=== PATIENT | female | born 1965 | race Caucasian/White ===

== ENCOUNTER → 2016-10-03 | Outpatient (CLI) | payer OTHER ==
[~2016-10-03] MED LIST: ALBUTEROL0.09 MG/A4 IH; ALEVE 220MG220 MG PO; ASPIRIN E.C. 8181 MG PO; ATENOLOL; ATENOLOL25 MG PO; CEFTIN250 M1 PO; CEPHALEXIN250 M1 PO; CIPRO250 MG PO; CLEOCIN HC150 MG/CAP PO; FLEXERIL 1010 MG/TAB PO; FUROSEMIDE; GLUCOSAMINE500 MG PO; IMIPRAMINE; K-DUR20 MEQ PO; KLOR-CON 1010 MEQ PO; LASIX 20MG TABL20 MG PO; LASIX20 MG PO; LEVAQUIN 250MG250 MG PO; LEVAQUIN 750MG750 MG PO; LORTAB 5/500 501 TAB PO; NITROQUICK0.4 MG SL; NO HOME MEDICATIONS; NORCO 325 MG-51 TAB PO; NORCO 325 MG-7.1 TAB PO; NORVASC2.5 MG PO; NYSTATIN 100MU/ML PO; PEPCID 20MG TAB20 MG PO; PERCOCET 325 MG1 TA2 PO; PERCOCET 500 MG1 TAB PO; PHENERGAN 25 TA25 MG PO; PREDNISONE; PREDNISONE10 MG; PREDNISONE20 MG PO; PYRIDIUM200 M1 PO; SINVASTATIN; TENORETIC 50 501 TAB PO; TENORMIN 2525 MG/TAB PO; TENORMIN25 MG PO; TORADOL10 MG PO; TUSS PO; VALIUM 5MG T5 MG/TAB PO; ZITHROMAX Z PA250 MG PO; ZOCOR 10MG10 MG PO; ZOFRAN 4MG T4 MG/TAB PO
== END ==
LOC: MC.RAD 13:46
DX: Z12.31 Encounter for screening mammogram for malignant neoplasm of breast (principal)

== ENCOUNTER 2017-09-17 11:49 | Emergency (ER) | payer OTHER ==
[~2017-09-17] VITALS: Ht 157.5 cm; Wt 95.5 kg
[2017-09-17 11:57] VITALS: BP 184/91; TEMP 98.1
[2017-09-17 13:18] LABS: BASO # 0.1 (0.0-0.2); BASO % 1.2 % (0.0-2.0); EOS # 0.2 (0.0-0.7); EOS % 2.8 % (0-4.0); GRAN # 4.2 (1.4-6.5); GRAN % 48.5 % (42.2-75.2); HEMOGLOBIN 14.5 g/dl (12.5-16.0); LYMPH # 3.5 (1.2-3.4); LYMPH % 41.3 % (20.0-51.0); MEAN CELL VOLUME 96 fl (80.0-100.0); MEAN CORPUSCULAR HEMOGLOBIN 32 pg (27.0-31.0); MEAN CORPUSCULAR HGB CONC 33 g/dl (33.0-37.0); MEAN PLATELET VOLUME 11.3 fl (7.4-10.4); MONO # 0.5 (0.1-0.6); MONO % 5.8 % (1.7-9.3); PLATELET COUNT 192 K/mm3 (130-400); RED BLOOD COUNT 4.58 M/mm3 (4.10-5.30); REDCELL DISTRIBUTION WIDTH-CV 13.2 % (11.5-14.5)
[2017-09-17 14:00] LABS: INFLUENZA A NEGATIVE; INFLUENZA B NEGATIVE
[2017-09-17 14:12] LABS: INR 1.1 (0.8-3.0); PROTHROMBIN TIME 12.5 SECONDS (9.7-12.8)
[2017-09-17 14:19] LABS: ALANINE AMINOTRANSFERASE 35 U/L (9-52); ALBUMIN 4.4 gm/dL (3.5-5.0); ALKALINE PHOSPHATASE 95 U/L (50-136); ANION GAP 7 mmol/L (7-16); AST,SGOT 24 U/L (15-37); BILIRUBIN,TOTAL 0.3 mg/dL (0.0-1.0); BLOOD UREA NITROGEN 13 mg/dL (7-17); CALCIUM 9.8 mg/dL (8.4-10.2); CARBON DIOXIDE 27 mmol/L (22-30); CHLORIDE 106 mmol/L (98-107); CREATININE, serum 0.72 mg/dL (0.52-1.25); GLUCOSE 90 mg/dL (74-106); POTASSIUM 3.8 mmol/L (3.4-5.0); SODIUM 140 mmol/L (137-145); TOTAL PROTEIN 7.2 gm/dL (6.4-8.2)
[2017-09-17 14:27] LABS: C-REACTIVE PROTEIN < 0.5 mg/dL (0.0-0.9)
[2017-09-17 14:30] LABS: TROPONIN-I < 0.012 ng/mL (0.000-0.034)
[2017-09-17] MEDS ORDERED: FLEXERIL 1010 MG/TAB PO (14:59)
[2017-09-17 15:06] VITALS: PULSE 88
== END 2017-09-17 15:08 | disposition home or self-care (01) ==
LOC: COL.ER 11:49
PROVIDERS: Family Medicine
DX: G44.89 Other headache syndrome (principal); M54.2 Cervicalgia; I10 Essential (primary) hypertension; F17.210 Nicotine dependence, cigarettes, uncomplicated; Z79.82 Long term (current) use of aspirin
CPT/HCPCS: J1885

== ENCOUNTER 2018-10-09 10:47 | Emergency (ER) | payer OTHER ==
[~2018-10-09] VITALS: Ht 160 cm; Wt 101.2 kg
[~2018-10-09 10:47] MED LIST changes: +NORVASC 5MG5 MG/TAB PO
[2018-10-09 11:03] VITALS: BP 147/74; TEMP 98.2
[2018-10-09 11:12] LABS: COLLECTION METHOD CLEAN CATCH
[2018-10-09] MEDS ORDERED: NORVASC 10MG10 MG PO (11:16)
[2018-10-09 11:26] LABS: MUCOUS Present /lpf; PH 5 (5-8); SQUAMOUS EPITHELIAL 0-2 /hpf; URINE APPEARANCE Clear; URINE BACTERIA None Seen /hpf; URINE BILIRUBIN Negative (NEGATIVE); URINE BLOOD 2+ (NEGATIVE); URINE COLOR Yellow; URINE GLUCOSE Negative (NEGATIVE); URINE KETONE Negative (NEGATIVE); URINE LEUKOCYTE ESTERASE Negative (NEGATIVE); URINE NITRATE Negative (NEGATIVE); URINE PROTEIN(semi-quant) Negative (NEGATIVE); URINE UROBILINOGEN Negative (NEGATIVE)
[2018-10-09 11:57] LABS: BASO # 0.1 (0.0-0.2); BASO % 0.6 % (0.0-2.0); EOS # 0.2 (0.0-0.7); EOS % 2.7 % (0-4.0); GRAN # 4.6 (1.4-6.5); GRAN % 54.2 % (42.2-75.2); HEMATOCRIT 41.4 % (37.0-47.0); LYMPH % 35.3 % (20.0-51.0); MEAN CELL VOLUME 94 fl (80.0-100.0); MEAN CORPUSCULAR HEMOGLOBIN 32 pg (27.0-31.0); MEAN CORPUSCULAR HGB CONC 34 g/dl (33.0-37.0); MEAN PLATELET VOLUME 10.8 fl (7.4-10.4); MONO # 0.6 (0.1-0.6); MONO % 6.8 % (1.7-9.3); PLATELET COUNT 234 K/mm3 (130-400); RED BLOOD COUNT 4.43 M/mm3 (4.10-5.30); REDCELL DISTRIBUTION WIDTH-CV 13.3 % (11.5-14.5)
[2018-10-09 12:05] LABS: BILIRUBIN,TOTAL 0.3 mg/dL (0.0-1.0); CALCIUM 9.3 mg/dL (8.4-10.2); CREATININE, serum 0.58 mg/dL (0.52-1.25)
[2018-10-09] MEDS ORDERED: NORCO 325 MG-51 TAB PO (13:04)
[2018-10-09 13:15] VITALS: PULSE 63
== END 2018-10-09 13:16 | disposition home or self-care (01) ==
LOC: COL.ER 10:47
PROVIDERS: Family Medicine
DX: N12 Tubulo-interstitial nephritis, not specified as acute or chronic (principal); Z87.442 Personal history of urinary calculi
CPT/HCPCS: J1170; J1885; J2405; J7030

== ENCOUNTER → 2019-05-05 | Outpatient (CLI) | payer OTHER ==
[~2019-05-05] MED LIST changes: +NORVASC 10MG10 MG PO
== END ==
LOC: COL.RAD 09:16
DX: M47.817 Spondylosis without myelopathy or radiculopathy, lumbosacral region (principal); M54.31 Sciatica, right side; M48.07 Spinal stenosis, lumbosacral region

== ENCOUNTER 2019-10-10 09:48 | Day surgery (SDC) | payer OTHER ==
[~2019-10-10] VITALS: Ht 160 cm; Wt 98.6 kg
[~2019-10-10 09:48] MED LIST changes: -NORVASC 10MG10 MG PO
[2019-10-10] MEDS ORDERED: MAXALT10 MG PO (10:23)
[2019-10-10] MEDS ORDERED: FLEXERIL 1010 MG/TAB PO (10:23)
[2019-10-10] MEDS ORDERED: TYLENOL 500MG500 MG PO (10:24)
[2019-10-10] MEDS ORDERED: MOTRIN 200200 MG/TAB PO (10:25)
[2019-10-10 11:12] VITALS: BP 138/88; PULSE 82; TEMP 98.6
[2019-10-10 11:55] VITALS: BP 134/78; PULSE 75; TEMP 97.7
--- NOTE | 2019-10-10 11:55 | NUR ---
Patient arrives back to [facility] [place], complains of abdominal cramping/gas pain. Patient ambulates from cart to chair with standby assist and without any complications. Patient monitor applied, vitals stable. Patient's son brought to bedside. Patient given soda.
--- NOTE | 2019-10-10 12:00 | NUR ---
Warm blanket applied to patient's abdomen. Patient educated on gas pain and how heat or ambulation will help.
[2019-10-10 12:10] VITALS: BP 135/87; PULSE 77
--- NOTE | 2019-10-10 12:20 | NUR ---
Patient reports that he abdominal cramping/gas pain is getting better. Vitals stable. Patient does report slight nausea, prn Zofran given. Dr Dawkins into see patient at this time to go over procedure results.
[2019-10-10 12:25] VITALS: BP 134/73; PULSE 70
[2019-10-10 12:40] VITALS: BP 124/80; PULSE 66
--- NOTE | 2019-10-10 12:40 | NUR ---
Patient reports that she feels much better at this time and is ready to go home.
--- NOTE | 2019-10-10 12:45 | NUR ---
Dismissal instructions gone over with patient and patient's son. Both verbalize understanding and all questions answered.
[2019-10-10 12:50] VITALS: BP 134/78; PULSE 74
--- NOTE | 2019-10-10 12:50 | NUR ---
Patient discharged to patient enterance to private vehicle that he son is driving without any complications. Patient leaves thanking staff for services.
== END 2019-10-10 12:50 | disposition home or self-care (01) ==
LOC: SDCO 09:48
DX: Z12.11 Encounter for screening for malignant neoplasm of colon (principal); D12.2 Benign neoplasm of ascending colon; K63.3 Ulcer of intestine; K57.30 Diverticulosis of large intestine without perforation or abscess without bleeding; K64.8 Other hemorrhoids; I10 Essential (primary) hypertension; E78.00 Pure hypercholesterolemia, unspecified; J45.909 Unspecified asthma, uncomplicated; K58.0 Irritable bowel syndrome with diarrhea; F17.210 Nicotine dependence, cigarettes, uncomplicated; G89.29 Other chronic pain; M54.5 Low back pain; G47.33 Obstructive sleep apnea (adult) (pediatric); Z90.710 Acquired absence of both cervix and uterus; Z86.010 Personal history of colon polyps; Z80.0 Family history of malignant neoplasm of digestive organs; Z88.5 Allergy status to narcotic agent; Z88.0 Allergy status to penicillin; Z91.040 Latex allergy status; Z85.41 Personal history of malignant neoplasm of cervix uteri; Z88.1 Allergy status to other antibiotic agents
CPT/HCPCS: J2405; J2704; J3010; J7030

== ENCOUNTER → 2019-11-07 | Outpatient (CLI) | payer OTHER ==
[~2019-11-07] MED LIST changes: +MAXALT10 MG PO; +MOTRIN 200200 MG/TAB PO; +TYLENOL 500MG500 MG PO
== END ==
LOC: MC.RAD 10:51
DX: Z12.31 Encounter for screening mammogram for malignant neoplasm of breast (principal)

== ENCOUNTER 2020-01-12 10:34 | Emergency (ER) | payer SELFPAY ==
[~2020-01-12] VITALS: Ht 160 cm; Wt 95.9 kg
[2020-01-12 10:36] VITALS: TEMP 97.6
[2020-01-12] MEDS ORDERED: NORCO 325 MG-51 TAB PO (10:41)
[2020-01-12] MEDS ORDERED: ZOFRAN ODT4 MG PO (12:38)
[2020-01-12] MEDS ORDERED: PERCOCET 325 MG1 TA2 PO (12:38)
[2020-01-12 13:09] VITALS: BP 123/67; PULSE 64
== END 2020-01-12 13:09 | disposition home or self-care (01) ==
LOC: COL.ER 10:34
DX: S32.040A Wedge compression fracture of fourth lumbar vertebra, initial encounter for closed fracture (principal); S32.050A Wedge compression fracture of fifth lumbar vertebra, initial encounter for closed fracture; I10 Essential (primary) hypertension; G43.909 Migraine, unspecified, not intractable, without status migrainosus; F17.210 Nicotine dependence, cigarettes, uncomplicated; Z88.0 Allergy status to penicillin; Z88.5 Allergy status to narcotic agent; Z90.710 Acquired absence of both cervix and uterus; W01.0XXA Fall on same level from slipping, tripping and stumbling without subsequent striking against object, initial encounter; Y92.009 Unspecified place in unspecified non-institutional (private) residence as the place of occurrence of the external cause
CPT/HCPCS: J2405; J3010

== ENCOUNTER 2020-09-16 18:27 | Emergency (ER) | payer OTHER ==
[~2020-09-16] VITALS: Ht 157.5 cm; Wt 94.5 kg
[~2020-09-16 18:27] MED LIST changes: +ZOFRAN ODT4 MG PO
[2020-09-16 18:46] VITALS: BP 161/88; PULSE 85; TEMP 98.1
== END 2020-09-16 20:22 | disposition left against medical advice (07) ==
LOC: COL.ER 18:27
DX: S61.011A Laceration without foreign body of right thumb without damage to nail, initial encounter (principal); W26.9XXA Contact with unspecified sharp object(s), initial encounter

== ENCOUNTER 2023-08-28 10:37 | Emergency (ER) | payer OTHER ==
[~2023-08-28] VITALS: Ht 157.5 cm; Wt 95.5 kg
[~2023-08-28 10:37] MED LIST changes: +COZAAR 50MG50 MG/TAB PO
[2023-08-28 10:42] VITALS: TEMP 98.1
[2023-08-28 10:58] LABS: BASO # 0.1 K/mm3 (0.0-0.2); BASO % 1.2 % (0.0-2.0); EOS # 0.3 K/mm3 (0.0-0.7); EOS % 3.7 % (0.0-4.0); GRAN # 3.5 K/mm3 (1.4-6.5); GRAN % 45.1 % (42.2-75.2); HEMATOCRIT 41.5 % (37.0-47.0); LYMPH # 3.3 K/mm3 (1.2-3.4); LYMPH % 42.1 % (20.0-51.0); MEAN CELL VOLUME 94 fl (80.0-100.0); MEAN CORPUSCULAR HEMOGLOBIN 32 pg (27-31); MEAN CORPUSCULAR HGB CONC 34 g/dl (33.0-37.0); MEAN PLATELET VOLUME 10.6 fl (7.4-10.4); MONO # 0.6 K/mm3 (0.1-0.6); MONO % 7.4 % (1.7-9.3); PLATELET COUNT 222 K/mm3 (130-400); REDCELL DISTRIBUTION WIDTH-CV 13.1 % (11.5-14.5)
[2023-08-28 11:12] LABS: ALANINE AMINOTRANSFERASE 20 U/L (0-55); ALBUMIN 3.9 gm/dL (3.5-5.0); ALKALINE PHOSPHATASE 103 U/L (40-150); ANION GAP 10 mmol/L (7-16); AST,SGOT 20 U/L (5-34); BILIRUBIN,TOTAL 0.3 mg/dL (0.2-1.2); BLOOD UREA NITROGEN 14 mg/dL (10-20); CALCIUM 9.7 mg/dL (8.4-10.2); CARBON DIOXIDE 22 mmol/L (22-29); CHLORIDE 109 mmol/L (98-107); CREATININE, serum 0.74 mg/dL (0.57-1.11); GLUCOSE 85 mg/dL (70-99); POTASSIUM 3.9 mmol/L (3.5-4.5); SODIUM 141 mmol/L (136-145); TOTAL PROTEIN 6.8 gm/dL (6.2-8.1)
[2023-08-28 11:18] LABS: TROPONIN-I < 0.010 ng/mL (0.00-0.033)
[2023-08-28 11:45] VITALS: BP 123/73; PULSE 70
== END 2023-08-28 12:20 | disposition home or self-care (01) ==
LOC: COL.ER 10:37
PROVIDERS: Physician Assistant
DX: R07.89 Other chest pain (principal); R06.02 Shortness of breath; F17.210 Nicotine dependence, cigarettes, uncomplicated; Z91.040 Latex allergy status

== ENCOUNTER 2023-10-16 11:32 | Emergency (ER) | payer OTHER ==
[~2023-10-16] VITALS: Ht 160 cm; Wt 100.0 kg
[2023-10-16 11:37] VITALS: TEMP 98
[2023-10-16 12:11] LABS: HEMATOCRIT 39.6 % (37.0-47.0); HEMOGLOBIN 13.3 g/dl (12.5-16.0); MEAN CELL VOLUME 95 fl (80.0-100.0); MEAN CORPUSCULAR HEMOGLOBIN 32 pg (27-31); MEAN CORPUSCULAR HGB CONC 34 g/dl (33.0-37.0); MEAN PLATELET VOLUME 10.5 fl (7.4-10.4); PLATELET COUNT 235 K/mm3 (130-400); RED BLOOD COUNT 4.17 M/mm3 (4.10-5.30); REDCELL DISTRIBUTION WIDTH-CV 13.5 % (11.5-14.5)
[2023-10-16] MEDS ORDERED: LR 1,000 ML IV ONE (12:15)
[2023-10-16 12:38] LABS: CALCIUM 9.6 mg/dL (8.4-10.2); CREATININE, serum 0.68 mg/dL (0.57-1.11); MAGNESIUM 2.2 mg/dL (1.6-2.6); POTASSIUM 4.2 mmol/L (3.5-4.5)
[2023-10-16 13:50] VITALS: BP 135/82; PULSE 67
== END 2023-10-16 13:50 | disposition home or self-care (01) ==
LOC: COL.ER 11:32
PROVIDERS: Emergency Medicine
DX: R42 Dizziness and giddiness (principal); R11.0 Nausea; Z91.040 Latex allergy status
CPT/HCPCS: J2765; J7120